=== PATIENT | female | born 1950 | race Caucasian/White ===

== ENCOUNTER 2017-04-04 16:30 | Emergency (ER) | payer OTHER ==
[2017-04-04 16:33] VITALS: BP 151/70; PULSE 94; BMI 32.1
--- NOTE | 2017-04-04 17:15 | PDOC ---
History of Present Illness - General Chief Complaint: Pain Stated Complaint: LT SHOULDER PAIN Time Seen by Provider: 04/04/17 16:50 History Source: Patient Exam Limitations: No Limitations - History of Present Illness Initial Comments: 04/04/17 17:12 67 yr female with c/o left arm pain , neck pain and cough for 2 weeks. Pt states last year had fracture to the upper left arm and sometimes has pain when the weather is raining. Pt states she has had a cough for 3 weeks not improving , pt has PT for her neck has a known herniated disc. Pt states the pain is reproducable with movement , lifting arm. Past History - Past Medical History Allergies/Adverse Reactions: Allergies Allergy/AdvReac Type Severity Reaction Status Date / Time morphine Allergy Severe HALLUCINATI Verified 04/04/17 16:33 ONS NUTS Allergy Difficulty Uncoded 04/04/17 16:33 Breathing Home Medications: Ambulatory Orders Atorvastatin Ca [Lipitor] 10 mg PO DAILY 03/12/14 Topiramate 25 mg PO DAILY 03/12/14 Albuterol Sulfate Inhaler - [Ventolin HFA Inhaler -] 1 - 2 inh PO Q4H #1 inhaler 07/05/16 Verapamil HCl [Verapamil ER] 240 mg PO DAILY 07/05/16 Aspirin [ASA -] 81 mg PO DAILY 04/04/17 Azithromycin [Zithromax 250mg Tablets -] 250 mg PO UTDICT #6 tab 04/04/17 Diazepam [Valium] 5 mg PO Q8H PRN #15 tablet MDD 15mg 04/04/17 Nitrofurantoin Monohyd/M-Cryst [Nitrofurantoin [place]-Mcr 100 mg] 100 mg PO ASDIR 04/04/17 Anemia: No Asthma: Yes Cancer: No Cardiac Disorders: No CVA: No COPD: No CHF: No Dementia: No Diabetes: No GI Disorders: No Disorders: No HTN: Yes Hypercholesterolemia: No Liver Disease: No Seizures: No Thyroid Disease: No - Surgical History Abdominal Surgery: No Appendectomy: No Cardiac Surgery: No Cholecystectomy: Yes Lung Surgery: No Neurologic Surgery: No Orthopedic Surgery: No - Psycho/Social/Smoking Cessation Hx Anxiety: No Suicidal Ideation: No Smoking Status: Yes Smoking History: Former smoker Have you smoked in the past 12 months: No Number of Cigarettes Smoked Daily: 1 If you are a former smoker, when did you quit?: 12 YRS Information on smoking cessation initiated: No 'Breaking Loose' booklet given: 07/05/16 Hx Alcohol Use: No Drug/Substance Use Hx: No Substance Use Type: None Hx Substance Use Treatment: No *Physical Exam - Vital Signs Last Vital Signs Temp Pulse Resp BP Pulse Ox 94 H 20 151/70 95 04/04/17 16:30 04/04/17 16:30 04/04/17 16:30 04/04/17 16:30 - Physical Exam General Appearance: Yes: Nourished, Appropriately Dressed HEENT: positive: EOMI, YOBANI, TMs Normal Neck: positive: Supple, Tender lateral (left trapezius ). negative: Lymphadenopathy (R), Lymphadenopathy (L), Rigidity Respiratory/Chest: positive: Normal Breath Sounds, Crackles (right lower base ) . negative: Chest Tender Cardiovascular: positive: Regular Rhythm, Regular Rate Gastrointestinal/Abdominal: positive: Normal Bowel Sounds, Soft Musculoskeletal: positive: Normal Inspection Extremity: positive: Normal Capillary Refill, Normal Inspection, Normal Range of Motion, Tender (posterior left shoulder to trapezius TTP muscle spasm ), Other (FROM all 5 fingers left hand no swelling ) Integumentary: positive: Normal Color, Dry, Warm Neurologic: positive: Fully Oriented, Alert, Normal Mood/Affect, Normal Response , Motor Strength 5/5 ED Treatment Course - RADIOLOGY Radiology Studies Ordered: Category Date Time Status CHEST PA & LAT [RAD] Stat Radiology 04/04/17 16:58 Ordered SPINE-CERVICAL [RAD] Stat Radiology 04/04/17 16:58 Ordered Medical Decision Making - Medical Decision Making 04/04/17 17:21 cc: left arm pain , neck pain history of herniated discs taking meloxicamb pt states cough for 3 weeks left arm pain with movement, sleeping is difficult will xray neck chest will give valium for muscle spasm sling to left arm 04/04/17 18:05 04/04/17 18:51 [employer]ating [employer]: (charity) Begin of Report Content Referring Physician: Carolyn Bowen Patient Name: Rachel Lam THIS IS A PRELIMINARYREPORT FROM [facility] DATE OF SERVICE: 2017-04-04 17:00:41.0 IMAGES: 3 EXAM: PA and lateral chest x-ray HISTORY:Possible pneumonia COMPARISON: None. FINDINGS:PA and lateral views of the chest are available. There is a small area of linear atelectasis and or infiltrate versus scarring at the left base. The lungs are otherwise clear. The heart and midline structures are unremarkable IMPRESSION: Findings of a small area of linear atelectasis and or infiltrate versus scarring at the left base THIS DOCUMENT HAS BEEN ELECTRONICALLY SIGNED Alfa Mayen MD 04/04/2017 18:15 EST M.D. Please call [facility] [email or web address] ([phone]) with questions. End of Report Content Other Reports for Carole Ramos ( ) Study Description Accession Number Report Date & Time Study Date & Time # of Reports SPINE-CERVICAL [id number] 04/04/2017 17:03:00 04/04/2017 17:03:29 1 *DC/Admit/Observation/Transfer Diagnosis at time of Disposition: Cervical radiculopathy at C5 Pneumonia Qualifiers: Pneumonia type: due to unspecified organism Laterality: left Lung location: lower lobe of lung Qualified Code(s): J18.1 - Lobar pneumonia, unspecified organism - Discharge Dispostion Disposition: HOME Condition at time of disposition: Good - Prescriptions Prescriptions: Diazepam [Valium] 5 mg PO Q8H PRN #15 tablet MDD 15mg PRN Reason: Muscle Spasms Azithromycin [Zithromax 250mg Tablets -] 250 mg PO UTDICT #6 tab - Referrals Referrals: Ina Yoo MD [Primary Care Provider] - - Patient Instructions Additional Instructions: follow with your primary care doctor tomorrow drink pleanty of fluids to stay hydrated take Valium for muscle spasm as directed DO NOT DRIVE, DRINK ALCOHOL OR OPERATE MACHINERY WHILE TAKING THE VALIUM take the Azithromycin as directed for 5 days rest at home use the sling while awake remove to sleep and bathe apply warm compresses to the area of pain in your neck
== END 2017-04-04 18:59 | disposition home or self-care (01) ==
LOC: JERFT 16:30
DX: M54.12 Radiculopathy, cervical region (principal); J18.1 Lobar pneumonia, unspecified organism; I10 Essential (primary) hypertension
CPT/HCPCS: 71020-TC; 72050-TC; 99281-25

== ENCOUNTER 2019-05-22 15:44 | Emergency (ER) | payer OTHER ==
--- NOTE | 2019-05-22 15:55 | PDOC ---
Rapid Medical Evaluation Medical Evaluation: Allergies Allergy/AdvReac Type Severity Reaction Status Date / Time morphine Allergy Severe HALLUCINATI Verified 04/04/17 16:33 ONS NUTS Allergy Difficulty Uncoded 04/04/17 16:33 Breathing 05/22/19 15:53 I have performed a brief in-person evaluation of this patient. The patient presents with a chief complaint of: "I have a growth on my back." Pertinent physical exam findings: cellulitis/early abscess to upper back I have ordered the following: nothing The patient will proceed to the ED for further evaluation. Discharge Disposition - Diagnosis Cellulitis - Referrals - Patient Instructions - Post Discharge Activity
[2019-05-22 16:00] VITALS: BP 158/70; PULSE 81; TEMP 97.8; BMI 30.9
--- NOTE | 2019-05-22 16:24 | PDOC ---
History of Present Illness - General Chief Complaint: Abscess Boil Stated Complaint: GROWTH TO LT SHOULDER BLADE Time Seen by Provider: 05/22/19 15:57 History Source: Patient Exam Limitations: Clinical Condition - History of Present Illness Initial Comments: 05/22/19 16:25 Patient with no significant past medical history present with complaint of over 1 week history of abscess to left upper back which started as a small pimple and as worsening the past week. Patient reported doing hot compresses to area but area still feels hard and painful. Reported redness to skin area of abscess. Denies any other symptoms Timing/Duration: reports: week (1 week) Past History - Past Medical History Allergies/Adverse Reactions: Allergies Allergy/AdvReac Type Severity Reaction Status Date / Time morphine Allergy Severe HALLUCINATI Verified 04/04/17 16:33 ONS NUTS Allergy Difficulty Uncoded 04/04/17 16:33 Breathing Home Medications: Ambulatory Orders Atorvastatin Ca [Lipitor] 10 mg PO DAILY 03/12/14 Topiramate 25 mg PO DAILY 03/12/14 Albuterol Sulfate Inhaler - [Ventolin HFA Inhaler -] 1 - 2 inh PO Q4H #1 inhaler 07/05/16 Verapamil HCl [Verapamil ER] 240 mg PO DAILY 07/05/16 Aspirin [ASA -] 81 mg PO DAILY 04/04/17 Azithromycin [Zithromax 250mg Tablets -] 250 mg PO UTDICT #6 tab 04/04/17 Diazepam [Valium] 5 mg PO Q8H PRN #15 tablet MDD 15mg 04/04/17 Nitrofurantoin Monohyd/M-Cryst [Nitrofurantoin [place]-Mcr 100 mg] 100 mg PO ASDIR 04/04/17 Clindamycin [Cleocin -] 300 mg PO TID #21 capsule 05/22/19 Ibuprofen 800 mg PO Q8H PRN #12 tablet 05/22/19 Anemia: No Asthma: Yes Cancer: No Cardiac Disorders: No CVA: No COPD: No CHF: No Dementia: No Diabetes: No GI Disorders: No Disorders: No HTN: Yes Hypercholesterolemia: No Liver Disease: No Seizures: No Thyroid Disease: No - Surgical History Abdominal Surgery: No Appendectomy: No Cardiac Surgery: No Cholecystectomy: Yes Lung Surgery: No Neurologic Surgery: No Orthopedic Surgery: No - Immunization History Immunization Up to Date: Yes - Suicide/Smoking/Psychosocial Hx Smoking Status: Yes Smoking History: Never smoked Have you smoked in the past 12 months: No Number of Cigarettes Smoked Daily: 1 If you are a former smoker, when did you quit?: 12 YRS 'Breaking Loose' booklet given: 07/05/16 Hx Alcohol Use: No Drug/Substance Use Hx: No Substance Use Type: None Hx Substance Use Treatment: No Review of Systems - Review of Systems Able to Perform ROS?: Yes Is the patient limited Danish proficient: No Constitutional: No: Fever, Malaise HEENTM: No: Symptoms Reported Respiratory: No: Symptoms reported Cardiac (ROS): No: Symptoms Reported Musculoskeletal: Yes: Symptoms Reported, See HPI, Back Pain (left upper back), Muscle Pain (left upper back cyst) Integumentary: Yes: Symptoms Reported, See HPI, Erythema (left upper bacj=k) All Other Systems: Reviewed and Negative *Physical Exam - Vital Signs Last Vital Signs Temp Pulse Resp BP Pulse Ox 97.8 F 81 18 158/70 98 05/22/19 15:58 05/22/19 15:58 05/22/19 15:58 05/22/19 15:58 05/22/19 15:58 - Physical Exam General Appearance: Yes: Nourished, Appropriately Dressed. No: Apparent Distress HEENT: positive: Normal ENT Inspection, Pharynx Normal Neck: positive: Trachea midline, Supple. negative: Tender Respiratory/Chest: positive: Normal Breath Sounds. negative: Respiratory Distress, Accessory Muscle Use Musculoskeletal: positive: Other (mild tenderness over area of induration of left upper back with surrounding erythema) Extremity: positive: Coldness Integumentary: positive: Dry, Erythema (4cm area of hard induration with surrounding diffused erythema. no open wound). negative: Bruising Neurologic: positive: Fully Oriented, Alert, Normal Mood/Affect, Normal Response , Motor Strength 5/5 Medical Decision Making - Medical Decision Making 05/22/19 16:26 Patient with no significant past medical history present with complaint of over 1 week history of abscess to left upper back which started as a small pimple and as worsening the past week. Patient reported doing hot compresses to area but area still feels hard and painful. Reported redness to skin area of abscess. Denies any other symptoms Exam significant for 4 cm circular hard induration to left upper back with diffuse erythema to skin of induration. Area not for fluctuant for I&D. Patient be discharged home on clindamycin antibiotics for cellulitis with advised to do hot compresses with dermatology follow-up *DC/Admit/Observation/Transfer Diagnosis at time of Disposition: Cellulitis of back Cellulitis Qualifiers: Site of cellulitis: other site Qualified Code(s): L03.818 - Cellulitis of other sites - Discharge Dispostion Disposition: HOME Condition at time of disposition: Stable Decision to Admit order: No - Prescriptions Prescriptions: Clindamycin [Cleocin -] 300 mg PO TID #21 capsule Ibuprofen 800 mg PO Q8H PRN #12 tablet PRN Reason: back pain and swelling - Referrals Referrals: Magdalene Thacker MD [Staff Physician] - - Patient Instructions Printed Discharge Instructions: Boil, DI for Skin Abscess Additional Instructions: Continue apply hot compresses to upper back 2-3 times a day as needed for swelling over abscess area. Take prescribed medication as prescribed and finish antibiotics. Follow-up referred dermatology in 3-5 days for reassessment or PCP if unable to see a procedures tech - Post Discharge Activity
== END 2019-05-22 16:33 | disposition home or self-care (01) ==
LOC: JERFT 15:44
DX: L02.212 Cutaneous abscess of back [any part, except buttock and flank] (principal); Z87.891 Personal history of nicotine dependence; J45.909 Unspecified asthma, uncomplicated; I10 Essential (primary) hypertension
CPT/HCPCS: 99281-25

== ENCOUNTER 2024-05-16 11:20 | Emergency (ER) | payer OTHER ==
[2024-05-16 11:35] VITALS: BP 120/86; PULSE 97; RESP 16; TEMP 98.7; BMI 32.3
== END 2024-05-16 14:34 | disposition home or self-care (01) ==
LOC: JER 11:20
DX: S80.02XA Contusion of left knee, initial encounter (principal); M25.561 Pain in right knee; W01.0XXA Fall on same level from slipping, tripping and stumbling without subsequent striking against object, initial encounter
CPT/HCPCS: 73562-TC-LT-FY; 73562-TC-RT-FY; 99283-25

== ENCOUNTER 2025-02-25 13:31 | Emergency (ER) | payer OTHER ==
[2025-02-25 13:46] VITALS: BP 118/55; PULSE 72; RESP 18; TEMP 98.3; BMI 34.5
== END 2025-02-25 15:51 | disposition home or self-care (01) ==
LOC: JER 13:31
PROC: 0H96XZZ Drainage of Back Skin, External Approach (ICD-10-PCS; principal; 2025-02-25)
DX: L02.222 Furuncle of back [any part, except buttock and flank] (principal)
CPT/HCPCS: 99283-25